=== PATIENT | female | born 1975 | race Caucasian/White ===

== ENCOUNTER 2020-11-22 15:21 | Outpatient (CLI) | payer OTHER, BC, SELFPAY ==
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
--- NOTE | ~2020-11-22 | CT_ITS ---
EXAMINATION: CT brain wo con DATE: 11/22/2020 15:47 INDICATION: Frontal headache TECHNIQUE: Computed tomography (CT) of the head was performed without intravenous contrast. The mA wa s adjusted according to patient size. Iterative reconstruction technique was employed. Exam dose: 60 5.33 mGy-cm total exam DLP. COMPARISON: None FINDINGS: No intracranial mass lesion or hemorrhage or cerebrovascular accident is evident. No midlin e shift or mass effect. Normal ventricular size. Saeed-white matter differentiation is preserved. No s ubdural or epidural hematoma. No orbital mass lesion. Included paranasal sinuses and mastoid air cells are normally developed and aerated. No fracture or bone destruction of the cranial vault. High density approximately 12.7 mm subcutaneous nodule is noted high over the posterior left parietal convexity, possibly a sebaceous cyst or other soft tissue lesion. IMPRESSION: No significant intracranial abnormality Reviewed, dictated and finalized at [facility]. Reviewed, dictated and finalized at location B. [facility] [employer]IA[employer]
== END 2020-11-22 15:22 | disposition home or self-care (01) ==
PROVIDERS: PCP Family Medicine; Visit Provider Family Medicine
DX: R51.9 Headache, unspecified (principal); M25.519 Pain in unspecified shoulder; M51.37 Other intervertebral disc degeneration, lumbosacral region; M50.30 Other cervical disc degeneration, unspecified cervical region
CPT/HCPCS: 70450; 72052; 72110; 73030

== ENCOUNTER 2022-01-26 18:34 | Emergency (ER) | payer BC, SELFPAY ==
[2022-01-26 18:39] VITALS: BP 116/80; PULSE 92; RESP 16; TEMP 36.9; O2SAT 100
--- NOTE | 2022-01-26 18:47 | ED.EAR ---
HPI - Ear Problem General Chief complaint: Ear Stated complaint: Ear pain, dizziness. Time Seen by Provider: 01/26/22 18:48 Source: patient, RN notes reviewed and old records reviewed Limitations: no limitations History of Present Illness HPI Narrative: 46 year old female who presents to [facility] care with complaints of right ear discomfort and dizziness for the past 2 days She reports that she has been taking Zyrtec recently, she states that her right ear is sore and she feels like she hears her heartbeat in her ear, she feels dizzy like she is spinning. Patient denies any headaches or any shortness of breath, denies any sore throat or any acute sinus congestion or drainage or cough. Patient reports that she has not been Covid vaccinated, denies any fevers, chills or sweat or any body aches. MD Complaint: ear pain and other (dizziness) Location: right ear Duration: constant Exacerbating factors: nothing Discharge from ear: Reports no Treatment prior to arrival: other (taking Zyrtec) Related Data Home Medications Medication Instructions Recorded Confirmed lactobacillus combination no.8 3 3,000 mmu cells PO DAILY 09/23/20 01/26/22 billion cell capsule multivitamin 1 tablet PO DAILY 09/23/20 01/26/22 multivitamin with mineral-herbal 1 cap PO DAILY 07/10/21 01/26/22 no.315 capsule cetirizine [Zyrtec] 10 mg PO DAILY 01/26/22 01/26/22 Allergies Allergy/AdvReac Type Severity Reaction Status Date / Time cephalexin Allergy Unknown Unknown Verified 01/26/22 18:46 Review of Systems Review of Systems: CONSTITUTIONAL: Denies fever, chills, or sweats. EYES: Denies visual changes, redness, or discharge. ENT: Denies rhinorrhea, congestion, sore throat, positive mild right otalgia. CARDIOVASCULAR: Denies chest pain, palpitations, or edema. RESPIRATORY: Denies cough or dyspnea. GASTROINTESTINAL: Denies abdominal pain, nausea, vomiting, or diarrhea. GENITOURINARY: Denies dysuria or hematuria. SKIN: Denies rash or itching. MUSCULOSKELETAL: Denies back pain, joint pain, or myalgia. NEUROLOGIC: Denies headache, numbness, or weakness verbalizes dizziness like she is spinning PSYCHIATRIC: Denies anxiety or depression. All systems reviewed & are unremarkable except as noted in HPI and below PMFSH Past Medical History Medical History (Updated 01/26/22 @ 19:07 by Loni Yanez NP) Acute vaginitis Body mass index [BMI] 25.0-25.9, adult (05/25/19) Contact dermatitis and other eczema due to detergents FH: CAD (coronary artery disease) Healthy adult Leukopenia Mitral valve prolapse Myalgia Other fatigue Perioral dermatitis Skin tag Vitamin D deficiency Surgical History Surgical History (Updated 01/26/22 @ 18:49 by Loni Yanez NP) History of cervical cerclage Previous section Family History Family History Grandparent Heart disease Ovarian cancer Mother Acute myocardial infarction Father Renal calculi Other Family history of malignant neoplasm Social History Social History Second hand tobacco smoke exposure: No Alcohol intake: never Substance use: never Substance use type: does not use Gender identity (if verbalized by the patient): Female Comments At time of signature, agree with nursing past medical, surgical, social and family history. There is no relevant family history pertinent to the presenting complaint Exam Narrative: GENERAL: Well-appearing, well-nourished, and in no acute distress. HEAD: Normocephalic, atraumatic. EYES: PERRLA and EOMI. ENT: Nares clear, no rhinorrhea or epistaxis. Mucous membranes moist.TM's normal with dull reflex, throat pink with no lesions or exudates, NECK: Supple. no lymphadenopathy CHEST: Clear to auscultation. No respiratory distress.SAO2 100%on room air HEART: Regular rate and rhythm. No murmur heard. Normal peripheral pulses. ABDOME
== END 2022-01-26 19:10 | disposition home or self-care (01) ==
PROVIDERS: Emergency Provider Registered Nurse; PCP Family Medicine
DX: H69.93 Unspecified Eustachian tube disorder, bilateral (principal); R42 Dizziness and giddiness; I34.1 Nonrheumatic mitral (valve) prolapse
CPT/HCPCS: 99213; G0463

== ENCOUNTER 2022-03-29 14:04 | Emergency (ER) | payer BC, SELFPAY ==
[2022-03-29 14:11] VITALS: BP 97/59; PULSE 79; RESP 18; TEMP 36.8; O2SAT 99
--- NOTE | 2022-03-29 14:33 | ED.GENADULT ---
HPI - General Adult General Chief complaint: Ear Stated complaint: ear inf History of Present Illness HPI narrative: Patient is a 46-year-old female who presents to the [facility] via POV for evaluation of a bilateral ear problem that began 13 days ago. Additionally, she reports intermittent pain in bilateral ears. Right worse than left. No relief with ofloxacin. Nothing improves or worsens pain. Related Data Home Medications Medication Instructions Recorded Confirmed multivitamin 1 tablet PO DAILY 09/23/20 03/29/22 cetirizine 10 mg tablet (Zyrtec) 10 mg PO DAILY 01/26/22 03/29/22 Allergies Allergy/AdvReac Type Severity Reaction Status Date / Time cephalexin Allergy Unknown Unknown Verified 03/29/22 14:16 Review of Systems Review of Systems: Denies fever, chills, sweats, change in appetite, poor p.o. intake, headaches, dizziness, LOC, ear drainage, hearing difficulty, sinus problems, nasal congestion, sore throat, cough, chest pain, rotations, nausea, vomiting, diarrhea PMFSH Past Medical History Medical History Acute vaginitis Body mass index [BMI] 25.0-25.9, adult (05/25/19) Contact dermatitis and other eczema due to detergents FH: CAD (coronary artery disease) Healthy adult Leukopenia Mitral valve prolapse Myalgia Other fatigue Perioral dermatitis Skin tag Vitamin D deficiency Surgical History Surgical History History of cervical cerclage Previous section Family History Family History Grandparent Heart disease Ovarian cancer Mother Acute myocardial infarction Father Renal calculi Other Family history of malignant neoplasm Social History Social History Second hand tobacco smoke exposure: No Alcohol intake: never Substance use: never Substance use type: does not use Gender identity (if verbalized by the patient): Female Exam Narrative: GENERAL: Well-appearing, well-nourished, and in no acute distress. HEAD: Normocephalic, atraumatic. No sinus tenderness or facial swelling appreciated. EYES: PERRLA and EOMI. No evidence of erythema, swelling, or drainage. ENT: Bilateral external ears and ear canals normal. Bilateral TMs are normal.No TM perforation. Nares clear, no rhinorrhea or epistaxis. Bilateral turbinates without erythema/ swelling. Mucous membranes moist and pink. Uvula is midline without erythema and swelling. No evidence of petechial rash, cobblestoning, lesions, ulcers, erythema, swelling, exudates, peritonsillar abscess, tenting, or drooling. Breath odor and voice normal. NECK: Supple. No Lymphadenopathy or nuchal rigidity appreciated. CHEST: Bilateral lung shanks are clear to auscultation. No respiratory distress. No evidence of cough or pleuritic cp upon examination. HEART: Regular rate and rhythm. No murmur, gallop, or rub heard. EXTREMITIES: Normal range of motion. No edema. SKIN: Warm, dry, no rash. NEURO: No focal deficits. Alert and oriented x3. Course Course Level of Care: Express Care Visit Vital Signs Vital signs: Vital Signs Temperature 98.3 F 03/29/22 14:11 Pulse Rate 79 03/29/22 14:11 Respiratory Rate 18 03/29/22 14:11 Blood Pressure 97/59 L 03/29/22 14:11 Pulse Oximetry 99 03/29/22 14:11 Oxygen Delivery Room Air 03/29/22 14:11 Temperature 98.3 F 03/29/22 14:11 Pulse Rate 79 03/29/22 14:11 Respiratory Rate 18 03/29/22 14:11 Blood Pressure 97/59 L 03/29/22 14:11 Pulse Oximetry 99 03/29/22 14:11 Oxygen Delivery Room Air 03/29/22 14:11 Medical Decision Making Differential Diagnosis Differential Diagnosis: Otitis externa, barotrauma, eustachian tube dysfunction, AOM, OME, herpes zoster infection, acute mastoiditis, malignancy Vital Signs Vital Signs:
== END 2022-03-29 14:36 | disposition home or self-care (01) ==
PROVIDERS: Emergency Provider Nurse Practitioner Family; PCP Family Medicine
DX: H69.93 Unspecified Eustachian tube disorder, bilateral (principal); I34.1 Nonrheumatic mitral (valve) prolapse
CPT/HCPCS: 99203; G0463

== ENCOUNTER 2025-04-11 14:47 | Outpatient (CLI) | payer BC, SELFPAY ==
--- NOTE | ~2025-04-11 | XR_ITS ---
XR abdomen/kub 1V Ordering provider: Mary Wing PA-C History: . R10.9 - Unspecified abdominal pain . Comparison: None. FINDINGS: BOWEL: Nonobstructive bowel gas pattern. ORGANOMEGALY: None. SIGNIFICANT PATHOLOGIC CALCIFICATIONS: None. OTHER: No free air is seen under the diaphragm. IMPRESSION: NO ACUTE ABDOMINAL FINDINGS. Reviewed, dictated and finalized at location A.
== END 2025-04-11 14:48 | disposition home or self-care (01) ==
PROVIDERS: PCP Family Medicine; Visit Provider Student in an Organized Health Care Education/Training Program
DX: R10.9 Unspecified abdominal pain (principal)
CPT/HCPCS: 74018